=== PATIENT | male | born 1985 | race African-American/Black ===

== ENCOUNTER 2020-02-04 11:46 | Emergency (ER) | payer MEDICAID ==
[~2020-02-04] VITALS: Ht 162.6 cm; Wt 87.0 kg
[2020-02-04 11:48] VITALS: BP 124/89
[2020-02-04 14:36] LABS: BASOPHILS % 1.3 % (0.0-2.0); EOSINOPHILS % 0.9 % (0.0-5.0); HEMATOCRIT. 44.9 % (42.0-52.0); LYMPHOCYTES % 50.1 % (20.0-50.0); MEAN CORPUSCULAR HEMOGLOBIN 30.5 pg (28.0-32.0); MEAN CORPUSCULAR VOLUME 91.6 fL (80.0-94.0); MONOCYTES % 11.2 % (2.0-8.0); NEUTROPHILS % 36.5 % (40.0-76.0); PLATELET 220 x1000/uL (130-400); RED CELL DISTRIBUTION WIDTH 14.3 % (11.6-14.6)
[2020-02-04 14:44] LABS: CHLORIDE 107 mEq/L (98-107)
== END 2020-02-04 17:37 | disposition home or self-care (01) ==
LOC: ER 11:46
DX: R60.9 Edema, unspecified (principal); R06.00 Dyspnea, unspecified; Z13.9 Encounter for screening, unspecified
CPT/HCPCS: 36415; 71045; 80053; 83880; 84484; 85025; 93005; 93970; 99285